=== PATIENT | female | born 1995 | race Caucasian/White ===

== ENCOUNTER 2017-04-28 08:07 | Day surgery (SDC) | payer OTHER ==
[2017-04-28] VITALS (10 sets, daily range): BP systolic 112–140; BP diastolic 63–79; PULSE 44–57; RESP 11–20; Ht 157.5 cm; Wt 76.0 kg
[~2017-04-28] VITALS: Ht 157.5 cm; Wt 76.0 kg
--- NOTE | 2017-04-28 06:18 | HP ---
DATE OF ADMISSION: 04/28/2017 HISTORY: A 21-year-old female patient with a long history of recurrent sore throats and chronic tonsillitis treated with multiple medications without relief, now admitted to the hospital for corrective surgery. ALLERGIES: PENICILLIN. MEDICATIONS: , MEDICAL CONDITIONS: Prior surgery, clotting disorders: None. HABITS: Alcohol, social. Tobacco, social. Recreational drugs, none. FAMILY HISTORY: Negative. REVIEW OF SYSTEMS: Negative. PHYSICAL EXAMINATION: GENERAL: Well-developed, well-nourished female patient, in no acute distress. HEENT: Head normocephalic. No masses or deformities. Ears and tympanic membranes normal. Nose clear. Oropharynx: Tonsils are 3+, cryptic, chronically infected. NECK: Shotty cervical lymphadenopathy. CHEST: Clear to P and A. HEART: Regular sinus rhythm without murmur. ABDOMEN: Soft. Bowel sounds normal. No masses or megaly. EXTREMITIES: Full range of motion without deformity. NEUROLOGIC: Physiologic. PELVIC AND RECTAL: Not done. IMPRESSION: Chronic recurrent tonsillitis. RECOMMENDATION: Admit for surgery. Dictated By: Haris Antunez MD /[email or web address] /Document#: [id number]
[~2017-04-28 08:07] MED LIST: PREN1TAB17 BU; PRENAT PO
[2017-04-28] MEDS ORDERED: FENTAnyl 50 MCG/ML VIAL ONE (10:06)
[2017-04-28] MEDS ORDERED: HYDROmorphONE (0.2 MG/ML) 10ML SYG IV PRN ×2 (10:30)
[2017-04-28] MEDS ORDERED: DIPHENHYDRAMINE 50 MG INJ IV PRN (10:30)
[2017-04-28] MEDS ORDERED: ONDANSETRON 4 MG INJ IV PRN (10:30)
[2017-04-28] MEDS ORDERED: METOCLOPRAMIDE 10 MG INJ IV PRN (10:30)
[2017-04-28] MEDS ORDERED: MEPERIDINE 25 MG INJ IV PRN (10:30)
[2017-04-28] MEDS ORDERED: FENTAnyl 50 MCG/ML VIAL IV PRN ×2 (10:30)
[2017-04-28] MEDS ORDERED: LIDOCAINE 2% (SDV) 5 ML INJ ONE (10:31)
[2017-04-28] MEDS ORDERED: GLYCOPYRROLATE 0.4 MG INJ ONE (10:31)
[2017-04-28] MEDS ORDERED: ROCURONIUM 50 MG INJ ONE (10:32)
[2017-04-28] MEDS ORDERED: PROPOFOL 20 ML ONE (10:32)
[2017-04-28] MEDS ORDERED: SUCCINYLCHOLINE CHLORIDE 100 MG/5 ML SYG IV ONE (10:32)
[2017-04-28] MEDS ORDERED: NEOSTIGMINE 3 MG/3 ML SYRINGE ONE (10:32)
--- NOTE | 2017-04-28 11:35 | OPR ---
Date/Time of Note Date/Time of Note DATE: 04/28/17 TIME: 11:32 ORA THIBODEAUX MD Apr 28, 2017 11:35
[2017-04-28] MEDS ORDERED: HYDROCODONE/APAP (7.5/325) TAB PO PRN (12:30)
--- NOTE | 2017-04-29 12:41 | OPR ---
DATE OF OPERATION: 04/29/2017 PREOPERATIVE DIAGNOSIS: Chronic tonsillitis. POSTOPERATIVE DIAGNOSIS: Chronic tonsillitis. OPERATION PERFORMED: Tonsillectomy. OPERATIVE PROCEDURE: Patient brought to the operating room under parental sedation, general oral endotracheal anesthesia. With the patient in the supine position, sterile sheets and drapes applied. A medium blade McIvor mouth gag was inserted. Tonsillectomy was performed with a dissection technique. Bleeding points were electrocoagulated for hemostasis. Tonsillar fossae were irrigated, suctioned and were dry at the time of extubation. The patient was awakened in the operating room, returned to recovery in excellent condition. ESTIMATED BLOOD LOSS: 10-15 cc. COMPLICATIONS: None. Dictated By: Haris Antunez MD /[email or web address] /Document#: [id number]
== END 2017-04-28 13:45 | disposition home or self-care (01) ==
LOC: SDS 08:07
PROVIDERS: ATTEND Otolaryngology Otolaryngology/Facial Plastic Surgery
DX: J35.01 Chronic tonsillitis (principal); Z88.0 Allergy status to penicillin
CPT/HCPCS: 42826; 88304; J1170; J2710; J3010; J7999; Z7512; Z7610

== ENCOUNTER 2018-04-05 18:29 | Emergency (ER) | END 2018-04-05 18:46 | disposition left against medical advice (07) ==